=== PATIENT | male | born 1970 | race Caucasian/White ===

== ENCOUNTER 2020-05-15 15:18 | Emergency (ER) | payer OTHER, SELFPAY ==
--- NOTE | ~2020-05-15 | XR_ITS ---
EXAMINATION: XR chest 2V DATE: 05/15/2020 16:05 INDICATION: 9 days of productive cough. TECHNIQUE: PA and lateral views of the chest were obtained. COMPARISON: None FINDINGS: Calcified nodules in the bilateral lower lung zones consistent with old granulomatous disease. No oth er airspace opacities, pulmonary edema, pleural effusion or pneumothorax. The cardiomediastinal silho uette is normal. Minimal to mild thoracic spondylosis. IMPRESSION: 1. No acute cardiopulmonary disease. Reviewed, dictated and finalized at location [facility]. [facility]
--- NOTE | 2020-05-15 15:32 | ED.URI ---
HPI - URI/Sore Throat General Chief Complaint: Upper Respiratory Infection Stated Complaint: Covid 19 Symptoms Source: patient and RN notes reviewed Mode of arrival: ambulatory History of Present Illness HPI Narrative: 49 yo male presents to express care for productive cough, intermittent shortness of breath at night, feeling feverish for the last 9 days. Patient reports that over the last 9 days his symptoms keep getting worse every day. Denies any chest pain. No abdominal pain. No nausea or vomiting or diarrhea. Patient states that at times it feels like he smoked a whole bunch of cigarettes at one time. Related Data Allergies Allergy/AdvReac Type Severity Reaction Status Date / Time No Known Allergies Allergy Verified 05/15/20 15:32 Review of Systems Review of Systems: Narrative: CONSTITUTIONAL: Denies fever. endorses chills, or sweats. EYES: Denies visual changes, redness, or discharge. ENT: Reports rhinorrhea, congestion. denies sore throat, or otalgia. CARDIOVASCULAR: Denies chest pain, palpitations, or edema. RESPIRATORY: Productive cough, yellow to green. Shortness of breath at night. GASTROINTESTINAL: Denies abdominal pain, nausea, vomiting, or diarrhea. GENITOURINARY: Denies dysuria or hematuria. SKIN: Denies rash or itching. MUSCULOSKELETAL: Denies back pain, joint pain, or myalgia. NEUROLOGIC: Denies headache, numbness, or weakness. PSYCHIATRIC: Denies anxiety or depression. All other systems reviewed are negative, except as documented in HPI. PMFSH Social History Social History Gender identity (if verbalized by the patient): Male Comments At the time of my signature, I reviewed and agree with the nursing past medical, surgical, social, and family history. There is no relevant family history pertinent to the patient complaint. Exam Narrative: Exam Narrative: GENERAL: This is a well-nourished, well-developed patient. Ill in appearance HEAD: normocephalic, atraumatic. EYES: PERRL. Sclera clear/white. Vision is grossly intact. EARS: External ears normal, auditory canals clear and without drainage, TMs normal without perforation. Hearing grossly intact. NOSE: External nose normal with no obvious nasal discharge, nares without redness, no rhinorrhea. THROAT: Mucous membranes moist, posterior pharynx clear. NECK: Neck supple, non-tender without lymphadenopathy, masses or thyromegaly. CARDIOVASCULAR: Regular rate and rhythm without murmurs, gallops, or rubs. RESPIRATORY: Right middle and lower lobe course with intermittent wheezes. Wheezes clear with a strong cough. GASTROINTESTINAL: Abdomen soft, non-tender, nondistended. Bowel sounds are active. SKIN: warm, intact with no suspicious lesions or rash, good texture and turgor. NEURO: awake, alert, and oriented to person, place and time. There were no obvious focal neurologic abnormalities. EXTREMITIES: No clubbing, cyanosis, or edema. No joint tenderness, effusion, or edema noted. . BACK: Nontender without deformity or crepitance. No flank tenderness. Course Vital Signs Vital signs: Vital Signs Temperature 97.2 F L 05/15/20 15:48 Pulse Rate 65 05/15/20 15:48 Respiratory Rate 16 05/15/20 15:48 Blood Pressure 135/95 H 05/15/20 15:48 Pulse Oximetry 96 05/15/20 15:48 Temperature 97.2 F L 05/15/20 15:48 Pulse Rate 65 05/15/20 15:48 Respiratory Rate 16 05/15/20 15:48 Blood Pressure 135/95 H 05/15/20 15:48 Pulse Oximetry 96 05/15/20 15:48 Reviewed. Discussed with patient to follow-up if no improvement with a primary care provider which she verbalized understanding. MDM - URI/Sore Throat MDM Narrative Medical decision making narrative: Patient symptoms have been going on for 9 days. Progressively getting worse. Patient reports having bronchitis in the past. Patient is a smoker. Differential Diagnosis Differential diagnosis: Likely upper respiratory infection, sinusitis, viral infection, bronchitis and influenza Lab Data Labs:
[2020-05-15 15:48] VITALS: BP 135/95; PULSE 65; RESP 16; TEMP 36.2; O2SAT 96
[2020-05-16 16:31] LABS: SARS-CoV-2 RNA PCR Negative
== END 2020-05-15 16:22 | disposition home or self-care (01) ==
PROVIDERS: Emergency Provider Nurse Practitioner
DX: J06.9 Acute upper respiratory infection, unspecified (principal); Z20.822 Contact with and (suspected) exposure to COVID-19; K21.9 Gastro-esophageal reflux disease without esophagitis
CPT/HCPCS: 71046; 87804; 99203; C9803; G0463; U0003; U0005